=== PATIENT | female | born 1940 | race Caucasian/White ===

== ENCOUNTER 2016-06-10 22:39 | Emergency (ER) | payer MEDICARE, BC ==
[2016-06-10 23:08] VITALS: BP 115/66; PULSE 69; RESP 20; TEMP 98.4; O2SAT 91
--- NOTE | 2016-06-11 00:54 | PD ---
HPI Chief Complaint: Fall Time Seen by Provider: 00:48 Travel History International Travel<30 days: No Contact w/Intl Traveler<30days: No Traveled to known affect area: No History of Present Illness HPI 75-year-old female complains of right leg laceration. Patient fell this evening. Patient denies any injury to her leg except the laceration. Patient denies any other injury. Patient states that she is up-to-date with TD booster. PFSH Social History Tobacco Use: No Allergies-Medications (Allergen,Severity, Reaction): Coded Allergies: Hctz (Verified Allergy, Unknown, 06/11/16) Reported Meds & Prescriptions Reported Meds & Active Scripts Active Keflex (Cephalexin) 500 Mg Cap 500 Mg PO Q8H Review of Systems General / Constitutional: No: Fever Eyes: No: Visual changes HENT: No: Headaches Cardiovascular: No: Chest Pain or Discomfort Respiratory: No: Shortness of Breath Gastrointestinal: No: Abdominal Pain Genitourinary: No: Dysuria Musculoskeletal: No: Pain Skin: No Rash Neurologic: No: Weakness Psychiatric: No: Depression Endocrine: No: Polydipsia Hematologic/Lymphatic: No: Easy Bruising Physical Exam Narrative GENERAL: Well-nourished, well-developed patient. SKIN: Warm and dry. HEAD: Normocephalic. EYES: No scleral icterus. No injection or drainage. NECK: Supple, trachea midline. No JVD or lymphadenopathy. CARDIOVASCULAR: Regular rate and rhythm without murmurs, gallops, or rubs. RESPIRATORY: Breath sounds equal bilaterally. No accessory muscle use. GASTROINTESTINAL: Abdomen soft, non-tender, nondistended. MUSCULOSKELETAL: No cyanosis, or edema. BACK: Nontender without obvious deformity. No CVA tenderness. Patient has a 10 cm skin evulsion laceration right lower leg posteriorly. No active bleeding. No bony injury. Data Data Last Documented VS Vital Signs Date Time Temp Pulse Resp B/P Pulse Ox O2 Delivery O2 Flow Rate FiO2 06/10/16 23:08 98.4 69 20 115/66 91 Orders Cephalexin (Keflex) (06/11/16 01:30) [facility] Medical Decision Making Medical Screen Exam Complete: Yes Emergency Medical Condition: Yes Differential Diagnosis Differential diagnosis including laceration, ligament tendon bony injury. Narrative Course 75-year-old female with right leg laceration Procedures Procedure Narrative Saline wash. Dermabond applied. Diagnosis Primary Impression: Laceration of right lower leg Qualified Code: S81.811A - Laceration of right lower leg, initial encounter Patient Instructions: General Instructions Additional Instructions: Keep the wound clean and dry for 10 days. Keflex as directed. Follow-up with personal physician. Return if increasing redness swelling. Med/Other Pt SpecificInfo: Prescription(s) given Scripts Cephalexin (Keflex)500 Mg [id number] Mg PO Q8H #15 CAP Ref 0 Prov:Otis Hernandez MD 06/11/16 Disposition: 01 DISCHARGE HOME Condition: Stable Otis Hernandez MD Jun 11, 2016 00:54
[2016-06-11] MEDS ORDERED: CEPH-460 PO (00:55)
[2016-06-11] MEDS ORDERED: CEPHALEXIN MONOHYDRATE 500 MG CAP PO ONE (01:30)
== END 2016-06-11 01:32 | disposition home or self-care (01) ==
LOC: PHED 22:39 → PHEFT 06-11 01:32
DX: S81.811A Laceration without foreign body, right lower leg, initial encounter (principal); W19.XXXA Unspecified fall, initial encounter; Y93.9 Activity, unspecified; Y92.9 Unspecified place or not applicable; Y99.9 Unspecified external cause status
CPT/HCPCS: 99282